=== PATIENT | female | born 1965 | race American Indian/Alaskan Native ===

== ENCOUNTER 2020-05-19 11:24 | Emergency (ER) | payer SELFPAY ==
[2020-05-19 13:23] LABS: Basophils % (Auto) 0.6 % (0.0-1.8); Eosinophils # (Auto) 0.1 K/mm3 (0.0-0.4); Eosinophils % (Auto) 0.9 % (0.0-4.3); Hematocrit 37.5 % (30.3-42.9); Hemoglobin 12.5 gm/dl (10.1-14.3); Lymphocytes # (Auto) 2.4 K/mm3 (1.2-5.4); Mean Corpuscular HGB Conc 33 % (30-34); Mean Corpuscular Volume 95 fl (79-97); Monocytes # (Auto) 0.4 K/mm3 (0.0-0.8); Monocytes % (Auto) 7.7 % (0.0-7.3); Platelet Count 256 K/mm3 (140-440); Red Blood Count 3.95 M/mm3 (3.65-5.03); Red Cell Distribution Width 13.1 % (13.2-15.2)
[2020-05-19 13:29] LABS: Alanine Aminotransferase 17 units/L (7-56); BUN/Creatinine Ratio 10; Blood Urea Nitrogen 8 mg/dL (7-17); Hemolysis Index 4
[2020-05-19] MEDS ORDERED: SODIUM CHLORIDE 0.9% 1000 ML 1,000 ML IV ONE (14:16)
[2020-05-19] MEDS ORDERED: METOCLOPRAMIDE 10 MG/2 ML INJ IV ONE (14:16)
[2020-05-19] MEDS ORDERED: diphenhydrAMINE 50 MG/ML VIAL IV ONE (14:16)
[2020-05-19 15:13] VITALS: BP 109/78
--- NOTE | 2020-05-19 15:35 | Cat Scan Report ---
CT head/brain wo con INDICATION / CLINICAL INFORMATION: 54 years Female; MAIN. TECHNIQUE: Routine CT head without contrast. All CT scans at this location are performed using CT dos e reduction for ALARA by means of automated exposure control. COMPARISON: None. FINDINGS: BRAIN / INTRACRANIAL CONTENTS: There is calcification involving the basal ganglia bilaterally. Otherw ise, the brain appears to demonstrate appropriate attenuation for age. The ventricular system is with in normal limits in size and configuration. There is no clear CT evidence of acute intracranial hemor rhage or significant mass effect. ORBITS: No significant abnormality of visualized orbits. SINUSES / MASTOIDS: No significant abnormality in the visualized paranasal sinuses or mastoid air holly ls. CRANIOCERVICAL JUNCTION: No significant abnormality. ADDITIONAL FINDINGS: None. IMPRESSION: 1. There is no CT evidence of acute intracranial process. Signer Name: Alo Bose MD Signed: 05/19/2020 3:31 PM Workstation Name: [id number]
[2020-05-19 15:57] LABS: Bilirubin,Urine NEG (Negative); Blood,Urine NEG (Negative); Color,Urine Yellow (Yellow); Protein,Urine <15 mg/dL mg/dL (Negative); Urobilinogen,Urine < 2.0 mg/dL (<2.0); WBC,Urine < 1.0 /HPF (0.0-6.0)
--- NOTE | 2020-05-19 16:41 | Emergency Department Report ---
ED Dizziness HPI - General Chief Complaint: Dizziness Stated Complaint: DIZZY,HEADACHES,BODY PAIN Time Seen by Provider: 05/19/20 14:14 Source: patient Mode of arrival: Ambulatory Limitations: No Limitations - History of Present Illness Initial Comments: This is a 54-year-old female nontoxic, well nourished in appearance, no acute signs of distress presents to the ED with c/o of dizziness, body aches, and headache x several days. Patient describes headache as diffuse with level of 3 out of 10. Patient denies thunderclap headache. Patient denies any radiation of pain. Patient denies any head trauma. Patient denies any visual changes. Patient denies worse headache. Patient stated that darkness makes headache better and bright lights make the headache worse. Patient denies any head trauma. Patient stated the dizziness is worsened with position change. Patient denies facial drooping or one sided weakness. Patient denies any numbness, tingling, stiff neck, chest pain, shortness of breathe, numbness or tingling. Denies any visual changes or blurry vision. Denies any drug allergies. MD Complaint: dizziness, other (headache) -: days(s) Description: lightheadedness History of Same: Yes History of Trauma: No Severity: mild Improves With: remaining still Worsens With: movement Associated Symptoms: denies: ataxia, chest pain, confusion, cough, diaphoresis, fever/chills, loss of appetite, malaise, seizure, shortness of breath, syncope, weakness - Related Data Previous Rx's Medication Instructions Recorded Last Taken Type Meclizine [Antivert] 12.5 mg PO BID PRN #12 tablet 05/19/20 Unknown Rx Allergies Allergy/AdvReac Type Severity Reaction Status Date / Time No Known Allergies Allergy Unverified 10/02/14 11:59 ED Review of Systems ROS: Stated complaint: DIZZY,HEADACHES,BODY PAIN Other details as noted in HPI Constitutional: denies: chills, fever Eyes: denies: eye pain, eye discharge, vision change ENT: denies: ear pain, throat pain Respiratory: denies: cough, shortness of breath, wheezing Cardiovascular: denies: chest pain, palpitations Endocrine: no symptoms reported Gastrointestinal: denies: abdominal pain, nausea, diarrhea Genitourinary: denies: urgency, dysuria, discharge Musculoskeletal: denies: back pain, joint swelling, arthralgia Skin: denies: rash, lesions Neurological: headache, vertigo. denies: weakness, paresthesias Psychiatric: denies: anxiety, depression Hematological/Lymphatic: denies: easy bleeding, easy bruising ED Past Medical Hx - Past Medical History Previous Medical History?: Yes Hx Hypertension: No Hx CVA: No Hx Heart Attack/AMI: No Hx Deep Vein Thrombosis: No Additional medical history: heart murmur - Surgical History Past Surgical History?: Yes Additional Surgical History: tubaligation - Social History Smoking Status: Never Smoker Substance Use Type: None - Medications Home Medications: Home Medications Medication Instructions Recorded Confirmed Last Taken Type Meclizine [Antivert] 12.5 mg PO BID PRN #12 tablet 05/19/20 Unknown Rx ED Physical Exam - General Limitations: No Limitations General appearance: alert, in no apparent distress - Head Head exam: Present: atraumatic, normocephalic - Eye Eye exam: Present: normal appearance - Neck Neck exam: Present: normal inspection, full ROM. Absent: tenderness, m eningismus, lymphadenopathy - Respiratory Respiratory exam: Present: normal lung sounds bilaterally. Absent: respiratory distress, wheezes, rales, rhonchi, stridor, chest wall tenderness, accessory muscle use, decreased breath sounds, prolonged expiratory - Cardiovascular Cardiovascular Exam: Present: regular rate, normal rhythm, normal heart sounds. Absent: bradycardia, tachycardia, irregular rhythm, systolic murmur, diastolic murmur, rubs, gallop - GI/Abdominal GI/Abdominal exam: Present: soft, normal bowel sounds. Absent: distended, tenderness, guarding, rebound, rigid, diminished bowel sounds - Extremities Exam Extremities exam: Present: normal inspection, full ROM, normal capillary refill. Absent: tenderness - Back Exam Back exam: Present: normal inspection, full ROM. Absent: tenderness, CVA tenderness (R), CVA tenderness (L), muscle spasm, paraspinal tenderness, vertebral tenderness, rash noted - Neurological Exam Neurological exam: Present: alert, oriented X3, normal gait - Expanded Neurological Exam Expanded Patient oriented to: Present: person, place, time Cranial nerves: EOM's Intact: Normal, Facial Sensation: Normal Cerebellar function: Finger to Nose: Normal Upper motor neuron: Pronator Drift: Normal, Sensory Extinction: Normal Motor strength exam: RUE: 5, LUE: 5, RLE: 5, LLE: 5 Best Eye Response (Bib): (4) open spontaneously Best Motor Response (Bib): (6) obeys commands Best Verbal Response ([place]): (5) oriented [place] Total: 15 - Psychiatric Psychiatric exam: Present: normal affect, normal mood - Skin Skin exam: Present: warm, dry, intact, normal color. Absent: rash ED Course Vital Signs 05/19/20 15:12 Temperature 97.6 F Pulse Rate 80 Respiratory 18 Rate Blood Pressure 109/78 [Left] O2 Sat by Pulse 99 Oximetry - Reevaluation(s) Reevaluation #1: 05/19/20 16:39 Patient is speaking in full sentences with no signs of distress noted. ED Medical Decision Making - Lab Data Result diagrams: 05/19/20 12:31 05/19/20 12:31 Lab Results 05/19/20 05/19/20 05/19/20 Range/Units 12:31 12:31 15:44 WBC 5.4 (4.5-11.0) K/mm3 RBC 3.95 (3.65-5.03) M/mm3 Hgb 12.5 (10.1-14.3) gm/dl Hct 37.5 (30.3-42.9) % MCV 95 (79-97) fl MCH 32 (28-32) pg MCHC 33 (30-34) % RDW 13.1 L (13.2-15.2) % Plt Count 256 (140-440) K/mm3 Lymph % (Auto) 44.0 H (13.4-35.0) % [place] % (Auto) 7.7 H (0.0-7.3) % Eos % (Auto) 0.9 (0.0-4.3) % Baso % (Auto) 0.6 (0.0-1.8) % Lymph # 2.4 (1.2-5.4) K/mm3 [place] # 0.4 (0.0-0.8) K/mm3 Eos # 0.1 (0.0-0.4) K/mm3 Baso # 0.0 (0.0-0.1) K/mm3 Seg Neutrophils % 46.8 (40.0-70.0) % Seg Neutrophils # 2.5 (1.8-7.7) K/mm3 Sodium 141 (137-145) mmol/L Potassium 5.1 H (3.6-5.0) mmol/L Chloride 103.8 (98-107) mmol/L Carbon Dioxide 28 (22-30) mmol/L Anion Gap 14 mmol/L BUN 8 (7-17) mg/dL Creatinine 0.8 (0.7-1.2) mg/dL Estimated GFR > 60 ml/min BUN/Creatinine Ratio 10 % Glucose 100 (65-100) mg/dL Calcium 9.0 (8.4-10.2) mg/dL Magnesium 2.40 H (1.7-2.3) mg/dL Total Bilirubin 0.60 (0.1-1.2) mg/dL AST 24 (5-40) units/L ALT 17 (7-56) units/L Alkaline Phosphatase 72 (35-129) units/L Total Creatine Kinase 99 (30-135) units/L Total Protein 7.5 (6.3-8.2) g/dL Albumin 4.0 (3.9-5) g/dL Albumin/Globulin Ratio 1.1 % Urine Color Yellow (Yellow) Urine Turbidity Clear (Clear) Urine pH 6.0 (5.0-7.0) Ur Specific [place] 1.010 (1.003-1.030) Urine Protein <15 mg/dl (Negative) mg/dL Urine Glucose (UA) Neg (Negative) mg/dL Urine Ketones Neg (Negative) mg/dL Urine Blood Neg (Negative) Urine Nitrite Neg (Negative) Urine Bilirubin Neg (Negative) Urine Urobilinogen < 2.0 (<2.0) mg/dL Ur Leukocyte Esterase Neg (Negative) Urine WBC (Auto) < 1.0 (0.0-6.0) /HPF Urine RBC (Auto) 1.0 (0.0-6.0) /HPF U Epithel Cells (Auto) 2.0 (0-13.0) /HPF - EKG Data 05/19/20 17:11 Sinus bradycardia 52 bpm. No significant T or ST wave abnormalities. Reviewed and signed by Dr. Lawrence. - Radiology Data Referring Physician: EMELINA HENSON Patient Name: RISHI BRADY Date of : 1965 Sex: Female Report Date: 2020-05-19 Report Status: Finalized [facility] [address] [place] [address] Cat Scan Report Signed Patient: RISHI BRADY MR#: [id number] : 1965 Acct:[id number] Age/Sex: 54 / F ADM Date: 05/19/20 Loc: ED Attending Dr: Ordering Physician: EMELINA HESNON NP Date of Service: 05/19/20 Procedure(s): CT head/brain wo con Accession Number(s): [id number] cc: EMELINA HENSON NP CT head/brain wo con INDICATION / CLINICAL INFORMATION: 54 years Female; MAIN. TECHNIQUE: Routine CT head without contrast. All CT scans at this location are performed using CT dose reduction for ALARA by means of automated exposure control. COMPARISON: None. FINDINGS: BRAIN / INTRACRANIAL CONTENTS: There is calcification involving the basal ganglia bilaterally. Otherwise, the brain appears to demonstrate appropriate attenuation for age. The ventricular system is within normal limits in size and configuration. There is no clear CT evidence of acute intracranial hemorrhage or significant mass effect. ORBITS: No signi ficant abnormality of visualized orbits. SINUSES / MASTOIDS: No significant abnormality in the visualized paranasal sinuses or mastoid air cells. CRANIOCERVICAL JUNCTION: No significant abnormality. ADDITIONAL FINDINGS: None. IMPRESSION: 1. There is no CT evidence of acute intracranial process. Signer Name: Alo Bose MD Signed: 05/19/2020 3:31 PM Workstation Name: [id number] Transcribed By: MR Dictated By: Alo Bose MD Electronically Authenticated By: Alo Bose MD Signed Date/Time: 05/19/20 1531 DD/ 1527 TD/TT: - Medical Decision Making This is a 54-year-old female that presents with headache and vertigo. Patient is stable and was examined by me. Patient is neurologically stable. CT has been obtained and patient is notified of the CT result with no questions noted by the patient. There is no stiff neck or neck pain. Vital signs are stable. Patient is afebrile. Patient received Benadryl, Reglan, and 1 L of normal saline which the patient stated that headache and dizziness has subsided and resolved. Patient was instructed not to operate any machinery after discharged due to drowsiness of Benadryl. Patient stated that a family member will drive patient home. Patient is discharged with Fioricet. Patient was referred to Follow-up with a primary care/neurologist doctor in 3-5 days or if symptoms worsen and continue return to emergency room as soon as possible. At time of discharge, the patient does not seem toxic or ill in appearance. No acute signs of distress noted. Patient agrees to discharge treatment plan of care. No further questions noted by the patient. Critical care attestation.: If time is entered above; I have spent that time in minutes in the direct care of this critically ill patient, excluding procedure time. ED Disposition Clinical Impression: Vertigo Headache Qualifiers: Headache type: unspecified Headache chronicity pattern: episodic headache Intractability: not intractable Qualified Code(s): R51 - Headache Disposition: DC-01 TO HOME OR SELFCARE Is pt being admited?: No Does the pt Need Aspirin: No Condition: Stable Instructions: Vertigo (ED), Acute Headache (ED) Additional Instructions: Follow-up with a primary care/neurologist doctor in 3-5 days or if symptoms worsen and continue return to emergency room as soon as possible. Prescriptions: Meclizine [Antivert] 12.5 mg PO BID PRN #12 tablet PRN Reason: Vertigo Referrals: PRIMARY MD MISTY [Primary Care Provider] - 3-5 Days GILBERTO HOLGUIN MD [Staff Physician] - 3-5 Days Forms: Work/School Release Form(ED)
== END 2020-05-19 17:30 | disposition home or self-care (01) ==
LOC: ED 11:24
DX: R42 Dizziness and giddiness (principal); R51 Headache; Z98.51 Tubal ligation status; Z79.899 Other long term (current) drug therapy
CPT/HCPCS: 36415; 70450; 80053; 81001; 82550; 83735; 85025; 93005; 96361; 96374; 96375; 99284; J1200; J2765; J7030

== ENCOUNTER 2021-06-09 11:35 | Emergency (ER) | payer OTHER ==
[2021-06-09 11:55] VITALS: BP 118/73
--- NOTE | 2021-06-09 14:38 | Emergency Department Report ---
ED ENT HPI - General Chief complaint: Headache Stated complaint: HEADACHE/SWEATING/EAR PAIN Time Seen by Provider: 06/09/21 14:33 Source: patient Mode of arrival: Ambulatory Limitations: No Limitations - History of Present Illness Initial comments: 55-year-old -[place] female presents to the emergency room for intermittent headache and ears popping and sweating since Wednesday morning. Patient denies any fever. She states she had dizziness yesterday and felt like the room was spinning but nothing today. She does report sweating. She has not been vaccinated. And has a history of vertigo. She has not taken anything for headache and states it is about a 2 out of 10. Patient denies taking any medications on a daily basis and has no known drug allergies. MD complaint: other (Headache) Onset/Timin -: days(s) Location: R ear, L ear Severity scale (0 -10): 2 Quality: aching Consistency: intermittent Improves with: none Worsens with: none Associated Symptoms: other (Intermittent ear popping). denies: fever, cough, gum swelling, toothache, pain with swallowing, sore throat, tinnitus, hearing loss, discharge from ear, rhinorrhea - Related Data Previous Rx's Medication Instructions Recorded Last Taken Type Meclizine [Antivert] 12.5 mg PO BID PRN #12 tablet 06/09/21 Unknown Rx Allergies Allergy/AdvReac Type Severity Reaction Status Date / Time No Known Allergies Allergy Unverified 10/02/14 11:59 ED Dental HPI - General Chief complaint: Headache Stated complaint: HEADACHE/SWEATING/EAR PAIN Time Seen by Provider: 06/09/21 14:33 Source: patient Mode of arrival: Ambulatory Limitations: No Limitations - Related Data Previous Rx's Medication Instructions Recorded Last Taken Type Meclizine [Antivert] 12.5 mg PO BID PRN #12 tablet 06/09/21 Unknown Rx Allergies Allergy/AdvReac Type Severity Reaction Status Date / Time No Known Allergies Allergy Unverified 10/02/14 11:59 ED Review of Systems ROS: Stated complaint: HEADACHE/SWEATING/EAR PAIN Other details as noted in HPI Comment: All other systems reviewed and negative ED Past Medical Hx - Past Medical History Previous Medical History?: No Hx Hypertension: No Hx CVA: No Hx Heart Attack/AMI: No Hx Deep Vein Thrombosis: No Additional medical history: heart murmur - Surgical History Past Surgical History?: Yes Additional Surgical History: tubaligation - Social History Smoking Status: Never Smoker Substance Use Type: None - Medications Home Medications: Home Medications Medication Instructions Recorded Confirmed Last Taken Type Meclizine [Antivert] 12.5 mg PO BID PRN #12 tablet 06/09/21 Unknown Rx ED Physical Exam - General Limitations: No Limitations General appearance: alert, in no apparent distress - Head Head exam: Present: atraumatic, normocephalic - Eye Eye exam: Present: normal appearance - ENT ENT exam: Present: normal exam, mucous membranes moist, TM's normal bilaterally. Absent: normal external ear exam - Neck Neck exam: Present: normal inspection, full ROM - Respiratory Respiratory exam: Present: normal lung sounds bilaterally. Absent: chest wall tenderness - Cardiovascular Cardiovascular Exam: Present: regular rate, normal heart sounds - Extremities Exam Extremities exam: Present: normal inspection, full ROM - Back Exam Back exam: Present: normal inspection, full ROM - Neurological Exam Neurological exam: Present: alert, oriented X3, normal gait - Psychiatric Psychiatric exam: Present: normal affect, normal mood - Skin Skin exam: Present: warm, dry, intact, normal color. Absent: rash ED Course Vital Signs 06/09/21 11:54 Temperature 98.6 F Pulse Rate 68 Respiratory 18 Rate Blood Pressure 118/73 [Right] O2 Sat by Pulse 100 Oximetry ED Medical Decision Making - Medical Decision Making 55-year-old -[place] female presents to the emergency room for intermittent headache and ears popping and sweating since Wednesday morning. Patient denies any fever. She states she had dizziness yesterday and felt like the room was spinning but nothing today. She does report sweating. She has not been vaccinated. And has a history of vertigo. She has not taken anything for headache and states it is about a 2 out of 10. Patient denies taking any medications on a daily basis and has no known drug allergies. Discussed with patient I will refill of her meclizine. She can take Tylenol ibuprofen. Follow-up with her primary care provider Dr. Yu. Critical care attestation.: If time is entered above; I have spent that time in minutes in the direct care of this critically ill patient, excluding procedure time. ED Disposition Clinical Impression: Popping of both ears, Headache Disposition: - TO HOME OR SELFCARE Is pt being admited?: No Does the pt Need Aspirin: No Condition: Stable Additional Instructions: Please try taking medication. Very important for you to follow-up with your primary care provider. Prescriptions: Meclizine [Antivert] 12.5 mg PO BID PRN #12 tablet PRN Reason: Vertigo Referrals: Gigi Bueno [Other] - 3-5 Days Time of Disposition: 14:39
== END 2021-06-09 15:27 | disposition home or self-care (01) ==
LOC: ED 11:35
DX: R51.9 Headache, unspecified (principal); H92.03 Otalgia, bilateral
CPT/HCPCS: 99281

== ENCOUNTER 2021-08-03 11:36 | Emergency (ER) | payer OTHER ==
[2021-08-03] MEDS ORDERED: predniSONE 20 MG TAB PO ONE (11:45)
[2021-08-03] MEDS ORDERED: HYDROcodone/ACETAMINOPHEN 10-325MG TAB PO ONE (11:45)
[2021-08-03] MEDS ORDERED: CLINDAMYCIN 300 MG CAP PO ONE (11:45)
[2021-08-03] MEDS ORDERED: IBUPROFEN 800 MG TAB PO ONE (11:47)
--- NOTE | 2021-08-03 11:49 | Emergency Department Report ---
ED ENT HPI - General Chief complaint: Dental/Oral Stated complaint: TOOTH PAIN Time Seen by Provider: 08/03/21 11:45 Source: patient Mode of arrival: Wheelchair Limitations: No Limitations - History of Present Illness Initial comments: This is a 56-year-old female nontoxic, well nourished in appearance, no acute signs of distress presents to the ED with c/o of right side lower toothache several days. Stated this morning has some slight swelling. Patient denies following up with a dentist. Patient denies any trauma or injuries. Denies any other complaints or symptoms. Patient describes toothache as aching level of 8 out of 10. Denies any radiation of pain patient denies any numbness, tingling, fever, chills, headache, stiff neck, abdominal pain, chest pain, shortness of breath. Patient denies any drug allergies. MD complaint: tooth pain -: days(s) Location: tooth # 1 - pain here Severity: mild Severity scale (0 -10): 8 Quality: aching Consistency: constant Improves with: none Worsens with: none Context- Dental: history of dental caries, poor dental care Associated Symptoms: gum swelling, toothache. denies: fever, cough, pain with swallowing, sore throat, tinnitus, hearing loss, discharge from ear, rhinorrhea - Related Data Previous Rx's Medication Instructions Recorded Last Taken Type Meclizine [Antivert] 12.5 mg PO BID PRN #12 tablet 06/09/21 Unknown Rx Chlorhexidine Mouthwash [Peridex] 15 ml MM BID #1 bottle 08/03/21 Unknown Rx Clindamycin [Clindamycin CAP] 300 mg PO Q8H #21 cap 08/03/21 Unknown Rx Naproxen 500 mg PO Q8H PRN #12 tablet 08/03/21 Unknown Rx Prednisone [predniSONE 10 mg 10 mg PO .TAPER #1 tab.ds.pk 08/03/21 Unknown Rx (6-Day Pack, 21 Tabs)] Allergies Allergy/AdvReac Type Severity Reaction Status Date / Time No Known Allergies Allergy Unverified 12/02/14 11:59 ED Dental HPI - General Chief complaint: Dental/Oral Stated complaint: TOOTH PAIN Time Seen by Provider: 08/03/21 11:45 Source: patient Mode of arrival: Wheelchair Limitations: No Limitations - Related Data Previous Rx's Medication Instructions Recorded Last Taken Type Meclizine [Antivert] 12.5 mg PO BID PRN #12 tablet 06/09/21 Unknown Rx Chlorhexidine Mouthwash [Peridex] 15 ml MM BID #1 bottle 08/03/21 Unknown Rx Clindamycin [Clindamycin CAP] 300 mg PO Q8H #21 cap 08/03/21 Unknown Rx Naproxen 500 mg PO Q8H PRN #12 tablet 08/03/21 Unknown Rx Prednisone [predniSONE 10 mg 10 mg PO .TAPER #1 tab.ds.pk 08/03/21 Unknown Rx (6-Day Pack, 21 Tabs)] Allergies Allergy/AdvReac Type Severity Reaction Status Date / Time No Known Allergies Allergy Unverified 10/02/14 11:59 ED Review of Systems ROS: Stated complaint: TOOTH PAIN Other details as noted in HPI Comment: All other systems reviewed and negative Constitutional: denies: chills, fever Eyes: denies: eye pain, eye discharge, vision change ENT: dental pain. denies: ear pain, throat pain, hearing loss, epistaxis, congestion Respiratory: denies: cough, shortness of breath, wheezing Cardiovascular: denies: chest pain, palpitations Endocrine: no symptoms reported Gastrointestinal: denies: abdominal pain, nausea, diarrhea Genitourinary: denies: urgency, dysuria, discharge Musculoskeletal: denies: back pain, joint swelling, arthralgia Skin: denies: rash, lesions Neurological: denies: headache, weakness, paresthesias Psychiatric: denies: anxiety, depression Hematological/Lymphatic: denies: easy bleeding, easy bruising ED Past Medical Hx - Past Medical History Previous Medical History?: Yes Hx Hypertension: No Hx CVA: No Hx Heart Attack/AMI: No Hx Deep Vein Thrombosis: No Additional medical history: heart murmur - Surgical History Past Surgical History?: Yes Additional Surgical History: tubaligation - Social History Smoking Status: Never Smoker Substance Use Type: None - Medications Home Medications: Home Medications Medication Instructions Recorded Confirmed Last Taken Type Meclizine [Antivert] 12.5 mg PO BID PRN #12 tablet 06/09/21 Unknown Rx Chlorhexidine Mouthwash [Peridex] 15 ml MM BID #1 bottle 08/03/21 Unknown Rx Clindamycin [Clindamycin CAP] 300 mg PO Q8H #21 cap 08/03/21 Unknown Rx Naproxen 500 mg PO Q8H PRN #12 tablet 08/03/21 Unknown Rx Prednisone [predniSONE 10 mg 10 mg PO .TAPER #1 tab.ds.pk 08/03/21 Unknown Rx (6-Day Pack, 21 Tabs)] ED Physical Exam - General Limitations: No Limitations General appearance: alert, in no apparent distress - Head Head exam: Present: atraumatic, normocephalic - Eye Eye exam: Present: normal appearance - Expanded ENT Exam Expanded Ear exam: Present: normal external inspection Mouth exam: Present: normal external inspection, tongue normal. Absent: drooling, trismus, muffled voice Teeth exam: Present: dental caries, fractured tooth #, dental tenderness #, gingival enlargement, other (some mild swelling with no induration or flutance noted on exam) Throat exam: Positive: normal inspection, other (uvula midline.). Negative: tonsillar exudate, R peritonsillar mass, L peritonsillar mass - Neck Neck exam: Present: normal inspection, full ROM. Absent: lymphadenopathy - Respiratory Respiratory exam: Absent: respiratory distress - Cardiovascular Cardiovascular Exam: Present: tachycardia - Extremities Exam Extremities exam: Present: full ROM - Back Exam Back exam: Present: full ROM - Neurological Exam Neurological exam: Present: alert, oriented X3, normal gait - Psychiatric Psychiatric exam: Present: normal affect, normal mood - Skin Skin exam: Present: warm, dry, intact, normal color. Absent: rash ED Course Vital Signs 08/03/21 11:40 Temperature 99.8 F H Pulse Rate 109 H Respiratory 20 Rate Blood Pressure 105/72 O2 Sat by Pulse 99 Oximetry Vital Signs 08/03/21 11:40 Temperature 99.8 F H Pulse Rate 109 H Respiratory 20 Rate Blood Pressure 105/72 O2 Sat by Pulse 99 Oximetry Vital Signs 08/03/21 08/03/21 11:40 16:15 Temperature 99.8 F H 98.5 F Pulse Rate 109 H 80 Respiratory 20 14 Rate Blood Pressure 105/72 Blood Pressure 100/65 [Left] O2 Sat by Pulse 99 99 Oximetry - Reevaluation(s) Reevaluation #1: 08/03/21 11:49 Patient is speaking in full sentences with no signs of distress noted. ED Medical Decision Making - Medical Decision Making This is a 56-year-old female that presents with dental abscess. Patient is stable and was examined by me. There is slight swelling without induration or fluctuance on exam.. I did give patient clindamycin 600 mg IM, prednisone, [place] and Motrin in the ED and patient is discharged with clindamycin. Patient stated family member will drive patient home after discharge due to possible drowsiness of [place]. Patient had strict instructions to follow-up with oral maxillary surgeon in 24 hours or if symptoms would worsen to return to emergency room as was possible. At time of discharge, the patient does not seem toxic or ill in appearance. No acute signs of distress noted. Patient agrees to discharge treatment plan of care. No further questions noted by the patient. Critical care attestation.: If time is entered above; I have spent that time in minutes in the direct care of this critically ill patient, excluding procedure time. ED Disposition Clinical Impression: Dental abscess Disposition: 01 HOME / SELF CARE / HOMELESS Is pt being admited?: No Does the pt Need Aspirin: No Condition: Stable Instructions: Dental Abscess Additional Instructions: Follow-up with oral maxillary surgeon in 24 hours or if symptoms would worsen to return to emergency room as was possible. [facility] vocational rehabilitation consultant and [facility] [employer] Address: [id number], [place] [address] Hours: Wednesday Closed Wednesday 8AM-1PM, 2-5PM Wednesday 8AM-1PM, 2-5PM Wednesday 8AM-1PM, 2-5PM 8AM-1PM, 2-5PM Wednesday 7AM-2PM Wednesday Closed Prescriptions: Clindamycin [Clindamycin CAP] 300 mg PO Q8H #21 cap Naproxen 500 mg PO Q8H PRN #12 tablet PRN Reason: Pain , Severe (7-10) Chlorhexidine Mouthwash [Peridex] 15 ml MM BID #1 bottle Prednisone [predniSONE 10 mg (6-Day Pack, 21 Tabs)] 10 mg PO .TAPER #1 tab.ds.pk Referrals: PRIMARY CARE, [Referring] - 3-5 Days GILBERTO HOLGUIN MD [Staff Physician] - 3-5 Days [facility] [Outside] - 3-5 Days [facility] [Outside] - 3-5 Days Time of Disposition: 16:18
[2021-08-03 16:16] VITALS: BP 100/65
== END 2021-08-03 17:00 | disposition home or self-care (01) ==
LOC: ED 11:36
DX: K04.7 Periapical abscess without sinus (principal); Z98.51 Tubal ligation status
CPT/HCPCS: 99282; J7512